=== PATIENT | female | born 1960 | race African-American/Black ===

== ENCOUNTER 2024-02-08 09:28 | Day surgery (SDC) | payer OTHER ==
[2024-02-07 09:39] VITALS: BMI 30.9
[2024-02-08] MEDS ORDERED: PROPOFOL 40 ML ONE (11:47)
[2024-02-08] MEDS ORDERED: Lidocaine 2% PF 5 ML VIAL ONE (11:47)
[2024-02-08] MEDS ORDERED: GLYCOPYRROLATE/PF 0.2 MG/ML VIAL ONE (12:30)
== END 2024-02-08 13:03 | disposition home or self-care (01) ==
LOC: SDC 09:28
PROVIDERS: ATTEND Internal Medicine
PROC: 0DJD8ZZ Inspection of Lower Intestinal Tract, Via Natural or Artificial Opening Endoscopic (ICD-10-PCS; principal; 2024-02-08)
DX: Z12.11 Encounter for screening for malignant neoplasm of colon (principal); K57.30 Diverticulosis of large intestine without perforation or abscess without bleeding; K64.9 Unspecified hemorrhoids; I10 Essential (primary) hypertension; E78.5 Hyperlipidemia, unspecified; Z80.0 Family history of malignant neoplasm of digestive organs
CPT/HCPCS: J2001; J2704; J3490